=== PATIENT | female | born 1945 | race Caucasian/White ===

== ENCOUNTER 2017-11-26 14:34 | Outpatient (RCR) | payer MEDICARE, BC ==
[~2017-11-26 14:34] MED LIST: ALLP100T PO; ATRV10T PO; BUPR150T6 PO; HYOS0.1217 PO; IBUP400T22 PO; LRT10T PO; NITR-33 PO; PHEN100T26 PO; TRIA1CAP4 PO; VIVELLE DOT TOP
--- NOTE | 2017-11-26 19:05 | Diagnostic Imaging Report ---
INDICATION: Renal stones. EXAMINATION: KUB was obtained at 3:12 p.m. COMPARISON: 10/24/2014. FINDINGS: There is moderate stool throughout the colon with no overt obstruction or ileus. There are some vascular calcifications in the left upper quadrant. There is postop change status post cholecystectomy. There is a calcification overlying the right flank which may be in the right kidney, measuring about 4 mm. Calcification to the right of the L4-5 level is unchanged compared to the prior study, measuring about 2 mm. There are no radiopaque calculi overlying the left kidney. IMPRESSION: Stable calcifications to the right of L4-5 of uncertain significance. Calcification overlying the right flank at the L2 level may be within the right kidney. There is prominent stool throughout the colon with no overt obstruction or ileus. Dictated by: Dictated on workstation # [id number]
== END 2017-12-04 | disposition home or self-care (01) ==
LOC: RAD 14:34
PROVIDERS: ATTEND Urology
DX: N20.0 Calculus of kidney (principal)
CPT/HCPCS: 74018

== ENCOUNTER 2018-01-06 15:15 | Outpatient (RCR) | payer MEDICARE, BC | END 2018-04-06 | disposition home or self-care (01) | LOC: LAB 15:15 | PROVIDERS: ATTEND Urology | DX: N20.0 Calculus of kidney (principal) | CPT/HCPCS: 36415; 82140; 82340; 82507; 82570; 83735; 83945; 83986; 84105; 84133; 84300; 84392; 84560 ==

== ENCOUNTER → 2019-01-17 | Outpatient (CLI) | payer MEDICARE, BC ==
--- NOTE | 2019-01-17 17:45 | Diagnostic Imaging Report ---
EXAMINATION: Abdomen at 5:22 p.m. INDICATION: Nephrolithiasis. FINDINGS: As noted on the prior exam of 11/26/2017, there is a small calcification overlying the right transverse process of L4. This finding is unchanged in position when compared to the previous study. The calculi overlying the right kidney seen previously are also no different than on the prior exam. There is no other pathological calcification evident. IMPRESSION: The calcifications overlying the right transverse process of L4 and the right kidney seen previously are unchanged. No new abnormality has developed. Dictated by: Dictated on workstation # [id number]
== END ==
LOC: RAD 17:06 → EDSTATUS 17:13
PROVIDERS: ATTEND Urology
DX: N20.0 Calculus of kidney (principal)
CPT/HCPCS: 74018

== ENCOUNTER 2020-01-23 14:25 | Outpatient (RCR) | payer MEDICARE, BC ==
--- NOTE | 2020-01-23 18:41 | Diagnostic Imaging Report ---
EXAMINATION: Supine abdomen at 2:39 AM INDICATION: Right-sided pain Two supine views were obtained. The prior abdomen exam of 01/17/2019 noted a small calcification overlying the right transverse process of L4. In the interval since the previous exam the calculus may have migrated caudally a few millimeters. This calculus could be within the right ureter. If further study is desired, then CT would be recommended. The calculus overlying the right kidney seen previously is obscured by bowel gas but appear similar. The overall appearance of the abdomen and pelvis has not changed significantly otherwise. IMPRESSION: 1. The calcific density overlying the right transverse process of L4 seen previously appears to have migrated a few millimeters caudally. This calcific density could be within the right ureter. Recommendations as above. 2. The overall appearance of the abdomen is otherwise stable. Dictated by: Dictated on workstation # [id number]
== END 2020-04-22 | disposition home or self-care (01) ==
LOC: RAD 14:25
PROVIDERS: ATTEND Urology
DX: M51.86 Other intervertebral disc disorders, lumbar region (principal); Z87.442 Personal history of urinary calculi
CPT/HCPCS: 74018

== ENCOUNTER → 2021-02-20 | Outpatient (CLI) | payer MEDICARE, BC ==
--- NOTE | 2021-02-20 17:26 | Diagnostic Imaging Report ---
EXAMINATION: Abdomen 1 view. HISTORY: H/O STONES. COMPARISON: 01/23/2020. FINDINGS: There is a moderate amount of gas and stool throughout the colon. Nonobstructive bowel gas pattern. Calcifications are seen overlying the right kidney measuring up to 0.5 cm. The lung bases are clear. Degenerative changes of the hips and spine. Osseous structures are otherwise intact. IMPRESSION: 1. Likely right renal calculi measuring up to 0.5 cm. 2. Moderate stool burden. Dictated by: Dictated on workstation # [id number]
== END ==
LOC: RAD 16:41
PROVIDERS: ATTEND Urology
DX: N28.89 Other specified disorders of kidney and ureter (principal); Z87.442 Personal history of urinary calculi
CPT/HCPCS: 74018

== ENCOUNTER → 2022-02-19 | Outpatient (CLI) | payer MEDICARE, BC ==
--- NOTE | 2022-02-19 18:18 | Diagnostic Imaging Report ---
EXAMINATION: Abdomen 1 view HISTORY: Renal stones COMPARISON: 02/20/2021 FINDINGS: No calculi are seen projecting over the kidneys or ureters. No dilated bowel. IMPRESSION: 1. No calculi are seen projecting over the kidneys or ureters. Dictated by: Dictated on workstation # [id number]
== END ==
LOC: RAD 14:43
PROVIDERS: ATTEND Urology
DX: Z87.442 Personal history of urinary calculi (principal)
CPT/HCPCS: 74018